=== PATIENT | female | born 1960 | race Hispanic/Latino ===

== ENCOUNTER 2018-05-08 20:57 | Emergency (ER) | payer OTHER ==
[~2018-05-08] VITALS: Ht 157.5 cm; Wt 85.6 kg
[2018-05-08] MEDS ORDERED: METFORMIN500 MG PO (21:10)
[2018-05-08] MEDS ORDERED: LANTUS SOL100 UNIT/M SC (21:11)
[2018-05-08] MEDS ORDERED: BP MED PO (21:12)
[2018-05-08 21:47] LABS: URINE BILIRUBIN - DIPSTICK NEGATIVE (NEGATIVE); URINE BLOOD DIPSTICK NEGATIVE (NEGATIVE); URINE COLOR YELLOW; URINE GLUCOSE - DIPSTICK >=1000 mg/dL (NEGATIVE); URINE KETONE NEGATIVE (NEGATIVE); URINE LEUK ESTERASE NEGATIVE (NEGATIVE); URINE NITRITE - DIPSTICK NEGATIVE (Negative); URINE PROTEIN - DIPSTICK NEGATIVE (NEG-TRACE); URINE UROBILINOGEN - DIPSTICK 0.2 E.U./dL (0.2)
[2018-05-08 21:49] LABS: URINE CLARITY CLEAR
[2018-05-08 21:58] LABS: HEMATOCRIT 40.7 % (37.0-47.0); HEMOGLOBIN 13.9 g/dl (12.0-16.0); IMMATURE GRANULOCYTES 0.6 % (0.0-1.0); MEAN CELL VOLUME 89.5 fL CALC (80.0-100.0); MEAN CORPUSCULAR HGB 30.5 pG CALC (26.0-32.0); MEAN CORPUSCULAR HGB CONC 34.2 g/L CALC (32.0-36.0); NEUT# 2.93 thou/uL (2.00-7.15); RED BLOOD COUNT 4.55 mill/uL (4.20-5.60); RED CELL DISTRI WIDTH 12.6 % (11.5-15.5)
[2018-05-08 22:02] LABS: ALBUMIN 4.3 g/dL (3.2-5.0); ALKALINE PHOSPHATASE 148 u/l (38-126); ANION GAP 16 (6-22 (CALC)); BILIRUBIN, TOTAL 0.3 mg/dL (0.0-1.4); BUN 17 mg/dL (7-17); BUN/CREATININE RATIO 29 (12-20 (CALC)); CARBON DIOXIDE 27 mmol/l (22-30); CHLORIDE 100 mmol/l (95-108); CREATININE 0.6 mg/dL (0.5-1.0); GFR > 60 ML/MIN (>=60 (CALC)); GFR FOR AFR.AMER. > 60 ML/MIN (>=60 (CALC)); POTASSIUM 3.8 mmol/l (3.5-5.1); SGOT/AST 14 u/l (14-36); SGPT/ALT 30 u/l (9-52); SODIUM 138 mmol/l (137-146); TOTAL PROTEIN 7.6 g/dL (6.3-8.2)
[2018-05-08] MEDS ORDERED: VOLTAREN - GENE75 MG PO (22:32)
[2018-05-08 22:50] VITALS: BP 160/55
== END 2018-05-08 22:51 | disposition home or self-care (01) | DRG 313 ==
LOC: ED 20:57
PROVIDERS: Family Medicine
DX: R07.89 Other chest pain (principal); E11.9 Type 2 diabetes mellitus without complications; I10 Essential (primary) hypertension

== ENCOUNTER 2024-04-26 10:34 | Emergency (ER) | payer OTHER ==
[~2024-04-26] VITALS: Ht 157.5 cm; Wt 81.0 kg
[2024-04-26] VITALS (15 sets, daily range): BP systolic 113–164; BP diastolic 73–92
[~2024-04-26 10:34] MED LIST: BP MED PO; LANTUS SOL100 UNIT/M SC; METFORMIN500 MG PO; VOLTAREN - GENE75 MG PO
[2024-04-26 11:06] LABS: BASO% 0.5 % (0-3); EOS% 2.1 % (0-8); HEMATOCRIT 39.6 % (37.0-47.0); HEMOGLOBIN 13.4 g/dl (12.0-16.0); IMMATURE GRANULOCYTES 0.4 % (0.0-5.0); LYMPH% 25.6 % (15-41); MEAN CELL VOLUME 90.4 fL CALC (80.0-100.0); MEAN CORPUSCULAR HGB 30.6 pG CALC (26.0-32.0); MEAN CORPUSCULAR HGB CONC 33.8 g/dL CAL (32.0-36.0); MONO% 5.8 % (2-13); NEUT# 5.57 thou/uL (2.00-7.15); NEUT% 65.6 % (42-76); RED BLOOD COUNT 4.38 mill/uL (4.20-5.60); RED CELL DISTRI WIDTH 12.6 % (11.5-15.5)
[2024-04-26 11:37] LABS: URINE BILIRUBIN - DIPSTICK Negative (NEGATIVE); URINE BLOOD DIPSTICK Trace-lysed (NEGATIVE); URINE GLUCOSE - DIPSTICK Negative (NEGATIVE); URINE KETONE Negative (NEGATIVE); URINE NITRITE - DIPSTICK Negative (Negative); URINE PROTEIN - DIPSTICK Negative (NEG-TRACE); URINE UROBILINOGEN - DIPSTICK 0.2 E.U./dL (0.2)
[2024-04-26 11:38] LABS: URINE COLOR Yellow; URINE LEUK ESTERASE Large (NEGATIVE)
[2024-04-26 11:38] LABS: PROTHROMBIN TIME 9.9 SECONDS (9.0-12.5)
[2024-04-26 11:39] LABS: ALBUMIN 4.4 g/dL (3.2-5.0); ALKALINE PHOSPHATASE 111 u/l (38-126); ANION GAP 10 (6-22 (CALC)); BUN 18 mg/dL (8-23); BUN/CREATININE RATIO 26 (12-20 (CALC)); CALCULATED LDLCHOLESTEROL 131 mg/dL (62-129 (CALC)); CARBON DIOXIDE 27 mmol/l (22-30); CHLORIDE 105 mmol/l (95-108); CHOLESTEROL HDL RATIO 4.1 (<4.4 (CALC)); CREATININE 0.7 mg/dL (0.5-1.0); ESTIMATED GFR 97 ML/MIN (>=90 (CALC)); HDL CHOLESTEROL 52 mg/dL (39.0-59.0); POTASSIUM 3.8 mmol/l (3.5-5.1); SGOT/AST 22 u/l (9-36); SODIUM 138 mmol/l (137-146); TOTAL CHOLESTEROL 211 mg/dl (0-199); TOTAL PROTEIN 8.1 g/dL (6.3-8.2); TOTAL TRIGLYCERIDES 147 mg/dl (0-149); VLDL CHOLESTROL 29 mg/dl (1-41 (CALC))
[2024-04-26 11:47] LABS: URINE RBC 0-2 RBC/hpf (0-5)
[2024-04-26 11:48] LABS: URINE BACTERIA FEW hpf; URINE EPITHELIAL CELLS MODERATE EPI/hpf (0-FEW)
[2024-04-26 11:55] LABS: BILIRUBIN, TOTAL 0.6 mg/dL (0.02-1.3)
== END 2024-04-26 14:30 | disposition home or self-care (01) | DRG 149 ==
LOC: ED 10:34
PROVIDERS: Family Medicine
DX: H81.12 Benign paroxysmal vertigo, left ear (principal); I10 Essential (primary) hypertension; E11.9 Type 2 diabetes mellitus without complications; Z79.84 Long term (current) use of oral hypoglycemic drugs; Z79.4 Long term (current) use of insulin
CPT/HCPCS: Q9967